=== PATIENT | female | born 1950 | race Caucasian/White ===

== ENCOUNTER 2020-03-22 20:21 | Emergency (ER) | payer MEDICARE, SELFPAY ==
[2020-03-22] VITALS (15 sets, daily range): BP systolic 119–134; BP diastolic 52–64; PULSE 76–89; RESP 13–20; TEMP 36.8; O2SAT 91–100
--- NOTE | ~2020-03-22 | CT_ITS ---
EXAMINATION: CT abdomen pelvis w con DATE: 03/22/2020 21:32 INDICATION: Low abdominal pain. Constipation. Recent gastric sleeve surgery. TECHNIQUE: Computed tomography (CT) of the abdomen and pelvis was performed with 100 cc Omnipaque 350 intravenous contrast. Automated exposure control and iterative reconstruction technique were employe d. Exam dose: 1505.74 mGy-cm total exam DLP. COMPARISON: None. FINDINGS: There are calcified mediastinal and right hilar nodes and calcified hepatic and splenic gra nulomas, consistent with old granulomatous disease. There is discoid atelectasis or scarring in the right lower lobe and to a lesser extent left lower lo be. Normal heart size. No pericardial or pleural effusion. Status post cholecystectomy. No hepatic, splenic, pancreatic, adrenal or renal space-occupying mass l esion is evident. There is diffuse pancreatic atrophy. Postoperative change of the stomach consistent with history of gastric sleeve. There is a 15 x 4 x 12 cm abnormal mass along the anterolateral right abdominal cavity abutting the right gastric wall and anterior abdominal wall, likely secondary to hematoma. Differential diagnosi s includes gastric leak, but this is considered less likely due to absence of air in the collection ( no free intraperitoneal air). There is prominent amount of feces in the colon. No bowel obstruction or intraperitoneal free air. Normal caliber of the abdominal aorta. No intraperitoneal or retroperitoneal or pelvic mass lesion o r lymphadenopathy. Retroverted uterus. Diffuse idiopathic skeletal hyperostosis of the thoracic spine. There is multi-level degenerative di sc disease of the lumbar and lumbosacral spine. Osteoarthritic changes of the hips. IMPRESSION: 15 x 4 x 12 cm soft tissue mass along the anterolateral abdominal cavity, approximating stomach; differential diagnosis includes hematoma versus less likely gastric leak. No free intraperi toneal air. Reviewed, dictated and finalized at [facility] Reviewed, dictated and finalized at [facility]. IMPRESSION: 15 x 4 x 12 cm soft tissue mass along the anterolateral abdominal cavity, approximating stomach; differential diagnosis includes hematoma versus less likely gastric leak. No free intraperitoneal air.
--- NOTE | 2020-03-22 20:39 | ED.ABDPAIN ---
HPI - Abdominal Pain General Chief Complaint: Abdominal Pain Stated Complaint: Constipated, post op 03/10 Time Seen by Provider: 03/22/20 20:33 Source: RN notes reviewed History of Present Illness HPI narrative: Patient presents emergency department from home for constipation. Patient states she had a gastric bypass performed by Dr. Silva at [facility] on 03/10/2020. States that since that time she has been constipated with minimal stool output. She has been on suppositories as well as fleets enemas with minimal output. Notes increasing pain in the bilateral lower abdomen. States associated nausea. Denies any fevers or chills chest pain shortness of breath or any other symptoms Related Data Home Medications Medication Instructions Recorded Confirmed allopurinol 03/22/20 furosemide 03/22/20 hydrocodone-acetaminophen 03/22/20 insulin glargine [Lantus U-100 SUBCUT 03/22/20 Insulin] levothyroxine 03/22/20 metoprolol tartrate 03/22/20 omeprazole 03/22/20 ondansetron 03/22/20 potassium chloride 03/22/20 tamsulosin mg PO 03/22/20 Allergies Allergy/AdvReac Type Severity Reaction Status Date / Time No Known Allergies Allergy Verified 03/22/20 20:26 Review of Systems Review of Systems: Narrative: Gen.: Denies fevers or chills ENT: Denies congestion Respiratory: Denies shortness of breath or cough CV: Denies chest pain or palpitations GI: See HPI denies burning, urgency, frequency or hematuria Musculoskeletal: Denies back pain or muscle pain Neuro: Denies numbness, tingling, weakness or focal weakness Skin: Denies rash Except as documented, all other systems reviewed and negative [facility] Past Medical History Medical History (Updated 03/23/20 @ 01:40 by Zurdo Pereyra DO) Diabetes mellitus Hypertension Social History Social History (Updated 03/22/20 @ 20:40 by Zurdo Pereyra DO) Smoking status: Never smoker Exam Narrative: Exam Narrative: APPEARANCE: No acute distress, nontoxic, resting in bed HEENT: Normocephalic, atraumatic, OMM RESPIRATORY: No respiratory distress, clear to auscultation bilaterally with no rhonchi wheezing or rales CARDIOVASCULAR: RRR s murmur ABDOMINAL: Soft, nondistended tender palpation right lower quadrant left lower quadrant, no rebound or guarding MUSCULOSKELETAl: Moves all extremities. No clubbing, cyanosis or edema. NEURO: Awake and alert. Following commands, speech normal, no focal deficits SKIN:: Warm, dry. Normal Color PSYCHIATRIC: Normal affect/mood Course Course Emergency Course: Called and discussed with her patient surgeon Dr. Rodriguez. Discussed CT results. At this time states patient may be discharged with patient to call the office tomorrow for follow-up. Does agree with plan for enema at this time Patient given enema in ED with large bowel movement states she feels better this time after discharge. Discussed with patient her hypokalemia she states she does have potassium pills at home but not been taking them and will resume taking them Discussed with patient results of workup and diagnosis. Discussed need for follow-up with primary care, proper use of medication, and reasons to return to the emergency department. Patient understands and agrees to current treatment plan Vital Signs Vital signs: Vital Signs Temperature 98.2 F 03/22/20 20:23 Pulse Rate 82 03/22/20 20:23 Respiratory Rate 17 03/22/20 20:23 Blood Pressure 125/64 03/22/20 20:23 Pulse Oximetry 99 03/22/20 20:23 Temperature 98.2 F 03/22/20 20:23 Pulse Rate 85 03/22/20 23:30 Respiratory Rate 20 03/22/20 23:30 Blood Pressure 132/52 L 03/22/20 23:16 Pulse Oximetry 99 03/23/20 00:45 MDM - Abdominal Pain Lab Data Result diagrams: 03/22/20 20:48 03/22/20 20:48 Labs: Lab Results 03/22/20 03/22/20 03/22/20 Range/Units 20:48 20:48 20:48 WBC 14.2 H (4.5-10.0) K/mm3 RBC 4.27 (4.2-5.4) M
[2020-03-22 20:55] LABS: Basophils Absolute Auto 0.1 K/mm3 (0.0-0.1); Basophils Percent Auto 0.4 % (0.2-1.2); Eosinophils Absolute Auto 0.1 K/mm3 (0-0.3); Eosinophils Percent Auto 0.6 % (0-4.4); Hematocrit 37.7 % (37.0-47.0); Hemoglobin 12.4 g/dL (12.0-15.0); Immature Granulocyte Absolute 0.08 K/mm3 (0.00-0.031); Immature Granulocyte Percent A 0.6 % (0-0.5); Lymphocytes Absolute Auto 1.44 K/mm3 (0.9-3.2); Lymphocytes Percent Auto 10.2 % (18.3-44.2); Mean Corpuscular HGB Conc 32.9 g/dl (32-36); Mean Corpuscular Volume 88.3 fl (80-100); Mean Platelet Volume 9.1 fl (7.4-10.4); Monocytes Percent Auto 6.8 % (2.6-8.5); Neutrophils Absolute Auto 11.5 K/mm3 (1.3-6.7); Neutrophils Percent Auto 81.4 % (45.5-73.1); Platelet Count Result 499 k/mm3 (150-375); Red Blood Count 4.27 M/mm3 (4.2-5.4); Red Cell Distribution Width 15.9 % (11.5-14.5); White Blood Count 14.2 K/mm3 (4.5-10.0)
--- NOTE | 2020-03-22 21:05 | PC.NURSE ---
Patient attempted to provide a urine specimen, unsuccessful. Patient refusing straight cath at this time.
[2020-03-22 21:07] LABS: Alanine Aminotransferase 24 U/L (4-35); Albumin Level 4.1 g/dL (3.5-5.1); Alkaline Phosphatase 121 U/L (38-126); Anion Gap 14.6 mmol/L (7-16); Aspartate Amino Transferase 33 U/L (14-36); Bilirubin,Total 2.1 mg/dL (0.2-1.3); Blood Urea Nitrogen 30 mg/dL (7-17); Calcium 8.7 mg/dL (8.4-10.2); Carbon Dioxide 36 mmol/L (22-30); Chloride 80 mmol/L (98-107); Estimated CRCL calculation 64 ml/min; Estimated Glomerular Filt Rate 55; Glucose 199 mg/dL (65-105); Lipase 77 U/L (23-300); Potassium 2.6 mmol/L (3.4-5.0); Sodium 128 mmol/L (137-145)
--- NOTE | 2020-03-22 21:14 | ECG_ITS ---
Measurements Intervals [place] Rate: 77 P: 15 SC: 172 QRS: -10 QRSD: 100 T: 51 QT: 475 QTc: 538 Interpretive Statements SINUS RHYTHM PROLONGED QT INTERVAL BASELINE ARTIFACT- I, II, III, AVR, AVL ABNORMAL ECG Electronically Signed On 03-23-2020 6:54:54 CDT by Ryder De León D.O.
--- NOTE | 2020-03-22 21:19 | PC.NURSE ---
Patient being taken to CT.
[2020-03-22 21:24] LABS: Magnesium 2.3 mg/dL (1.6-2.3)
[2020-03-22] MEDS: POTASSIUM CHLORIDE 20 MEQ PACKET (FOR LIQUID) 40 MEQ PO (21:41)
[2020-03-22] MEDS: SODIUM CHLORIDE 0.9% IV 1,000 ML 150 ML (21:42)
--- NOTE | 2020-03-22 23:57 | PC.NURSE ---
This nurse went to check on patient, patient still on BSC. Patient did pass some hard stool. Patient requested to have more of the enema to relieve more pressure. This nurse gave patient about 300ml more of the enema and patient back on BSC. Patient states she does feel better than when she came in.
[2020-03-23 00:36] VITALS: O2SAT 98
[2020-03-23 00:45] VITALS: O2SAT 99
[2020-03-23 02:01] VITALS: BP 124/52; PULSE 86; RESP 20; TEMP 36.6; O2SAT 98
== END 2020-03-23 01:55 | disposition home or self-care (01) ==
PROVIDERS: Emergency Provider Emergency Medicine; PCP Internal Medicine
DX: K91.870 Postprocedural hematoma of a digestive system organ or structure following a digestive system procedure (principal); K95.89 Other complications of other bariatric procedure; E87.6 Hypokalemia; K59.00 Constipation, unspecified; E11.9 Type 2 diabetes mellitus without complications; I10 Essential (primary) hypertension; Z79.4 Long term (current) use of insulin
CPT/HCPCS: 36415; 74177; 80053; 83690; 83735; 85025; 93005; 96365; 96366; 99284; A9270; J3480; J7030; Q9967

== ENCOUNTER 2021-04-19 09:34 | Emergency (ER) | payer MEDICARE, SELFPAY ==
[2021-04-19 09:44] VITALS: BP 140/68; PULSE 84; RESP 18; TEMP 37.1; O2SAT 100
--- NOTE | 2021-04-19 10:06 | ED.GENADULT ---
HPI - General Adult General Chief complaint: Skin/Abscess/Foreign Body Stated complaint: Rash,Shoulder and back Pain Time Seen by Provider: 04/19/21 10:07 Source: patient and RN notes reviewed Mode of arrival: ambulatory Limitations: no limitations History of Present Illness HPI narrative: 71-year-old female presents to the [facility] with complaints of a rash, right shoulder pain and right upper back pain. Has blisters on the palm of right hand just proximal to the third finger. They are fluctuant. Patient reports that the pain started yesterday, blisters and rash started today. Describes an as burning and painful. Not itchy. Related Data Home Medications Medication Instructions Recorded Confirmed allopurinol 100 mg PO DAILY 03/22/20 04/19/21 furosemide 40 mg PO DIRECTED 03/22/20 04/19/21 levothyroxine 25 mcg PO DAILY 03/22/20 04/19/21 metoprolol tartrate 75 mg PO DAILY 03/22/20 04/19/21 omeprazole 40 mg PO DAILY 03/22/20 04/19/21 potassium chloride 40 meq PO DIRECTED 03/22/20 04/19/21 hydrochlorothiazide 25 mg PO DAILY 04/19/21 04/19/21 Allergies Allergy/AdvReac Type Severity Reaction Status Date / Time No Known Allergies Allergy Verified 04/19/21 09:47 Review of Systems Review of Systems: All systems reviewed & are unremarkable except as noted in HPI and below Constitutional: Constitutional: Reports no additional constitutional complaints, Denies chills and Denies fever(s) Eyes: Eyes: Reports no additional eye complaints and Denies change in vision ENT: Reports system reviewed and no additional complaints, except as documented Cardiovascular: Cardiovascular: Reports no additional cardiovascular complaints and Denies chest pain Respiratory: Respiratory: Reports no additional respiratory complaints Gastrointestinal: Gastrointestinal: Reports no additional gastrointestinal complaints Musculoskeletal: Musculoskeletal: Reports no additional musculoskeletal complaints Integumentary/Breasts: Skin/Breast: Reports as per HPI and Reports rash (Right arm) Neurologic: Reports system reviewed and no additional complaints, except as documented Psychiatric: Psychiatric: Reports no additional psychiatric complaints Allergic/Immunologic: Allergic/Immunologic: Reports no additional allergic/immunologic complaints PMFSH Past Medical History Medical History (Updated 04/19/21 @ 17:34 by Sole Mcgregor) Diabetes mellitus Gout Hypertension Surgical History Surgical History (Updated 04/19/21 @ 17:34 by Sole Mcgregor) History of sleeve gastrectomy Social History Social History Smoking status: Never smoker Comments At the time of my signature, I reviewed and agree with the nursing past medical, surgical, social, and family history. There is no relevant family history pertinent to the patient complaint. Exam Const: General: healthy appearing, no acute distress and alert Nutritional Appearance: well nourished and obese Orientation/consciousness: patient oriented x3 Limitations: no limitations HENMT: Head: normal to inspection Ears: external ears normal Eyes: Conjunctivae: conjunctivae normal Pupils: Equal, round and reactive pupils present Neck: Neck: normal visual inspection, no lymphadenopathy and no meningeal signs Chest: Chest palpation & inspection: normal inspection of the chest Resp: Effort & Inspection: normal respiratory effort and no use of accessory muscles Auscultation: clear to auscultation bilaterally, no crackles, no rales, no rhonchi and no wheezes Cardio: Rate: regular rate Rhythm: regular rhythm Back/Spine/Pelvis: Back: no CVA tenderness Skin: General skin exam: normal color Other: Red hepatic lesions noted to the posterior right upper arm, axilla area, right elbow. Blisters noted with red surrounding tissue to the palmar aspect right hand proximal to the third finger Neuro: General: patient oriented x3, moves all extremi
== END 2021-04-19 10:37 | disposition home or self-care (01) ==
PROVIDERS: Emergency Provider Nurse Practitioner; PCP Registered Nurse
DX: B02.9 Zoster without complications (principal); S60.422A Blister (nonthermal) of right middle finger, initial encounter; E11.9 Type 2 diabetes mellitus without complications; M10.9 Gout, unspecified; I10 Essential (primary) hypertension
CPT/HCPCS: 10160; 87070; 87205; 99213; G0463